=== PATIENT | female | born 1965 | race Caucasian/White ===

== ENCOUNTER 2019-07-21 12:09 | Inpatient (IN) ==
[2019-07-21] MEDS ORDERED: TYLENOL PO PRN (13:23)
[2019-07-21] MEDS ORDERED: NS 1,000 ML IV ONE (13:23)
[2019-07-21] MEDS ORDERED: NS 1,000 ML IV SCH (13:30)
--- NOTE | 2019-07-21 13:40 | EKG Report ---
Test Performed on : 07/21/2019 1:29:36 PM Test Reason : chest pain Blood Pressure : / mmHG Vent. Rate : 108 BPM Atrial Rate : 108 BPM P-R Int : 116 ms QRS Dur : 084 ms QT Int : 336 ms P-R-T Axes : 069 069 077 degrees QTc Int : 450 ms Sinus tachycardia. Minimal voltage criteria for LVH, may be normal variant Nonspecific T wave abnormality Abnormal ECG When compared with ECG of 29-JUN-2018 12:10, T wave inversion now evident in Inferior leads Confirmed by Lorrie Mendoza MD ([id number]) on 07/22/2019 4:57:22 PM
[2019-07-21] MEDS: MORPHINE IV PRN ×2 (14:17→17:30)
[2019-07-21] MEDS: ZOFRAN IV PRN ×2 (14:17→18:55)
--- NOTE | 2019-07-21 14:39 | HISTORY AND PHYSICAL ---
PRIMARY CARE PROVIDER: Dr. Jones. PRIMARY TREASURY ASSISTANT: Dr. Sidhu. PRIMARY MARKET MASTER: Dr. Padilla. CHIEF COMPLAINT: Epigastric pain. HISTORY OF PRESENT ILLNESS: Ms Cherie Driscoll is a 54-year-old female with a medical history of SVT, moderate aortic insufficiency, anxiety, COPD, chronic pancreatitis, spinal nerve syndrome, who states that for at least 1 month, she has had some epigastric pain that has radiated into her back. Dr. Jones recommended her to Dr. Padilla, who around 2 weeks ago performed an EGD and a colonoscopy. Those, however, did not show any acute findings and then she re-presented for a follow-up visit with Dr. Padilla today complaining of 10/10 epigastric pain that would radiate into her back. He wanted to direct admit for treatment of acute on chronic pancreatitis and to complete a workup here. Last week, she complained of subjective fever of 103 degrees and some dizzy spells. She also states that she has had an old vaginal cyst in the past and when she voids, it feels like fire in that location. She has had decreased appetite and complains of a 30 pound weight loss over the past month due to the nausea and vomiting that she is having with epigastric pain. PAST MEDICAL HISTORY: 1. Chronic pancreatitis. 2. COPD. 3. Anxiety. 4. Moderate aortic insufficiency. 5. History of SVT. SURGICAL HISTORY: 1. Neck surgery. 2. Vaginal cyst drainage. 3. Appendectomy. 4. Cholecystectomy. 5. Bilateral tubal ligation. SOCIAL HISTORY: Quit drinking in 2005 but prior to that she drank daily and it was Vladislav Fallon or vodka. She still smokes 1 pack per day, started at the age of 14. She denies any illicit drug use. 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 She is engaged to a man that she has been with for 21 years. Has several children and grandchildren. FAMILY HISTORY: Cousin and grandmother had pancreatic cancer. Mother had ovarian cancer, congestive heart failure and COPD. Father had bone cancer and Alzheimer's. ALLERGIES: Amitriptyline and red dye. HOME MEDICATIONS: Have not been reconciled yet. REVIEW OF SYSTEMS: Fourteen point review of systems are complete and all were negative except for those mentioned in above HPI. PHYSICAL EXAMINATION: VITAL SIGNS: Temperature 97.5 degrees, heart rate 105, respiratory rate 19, blood pressure 106/72, O2 saturation 98% on room air. GENERAL: Ms. Cherie Driscoll is a 54-year-old female. She is in no acute distress. She is able to answer questions appropriately. HEENT: Atraumatic, normocephalic. Pupils equal, round, reactive to light. Extraocular movements intact. Mucous membranes are moist. NECK: Trachea midline. CARDIOVASCULAR: S1, S2. Regular rate and rhythm. No rubs, gallops, murmurs. No lower extremity edema. +2 dorsalis and radial pulses. Negative JVD or carotid bruits. PULMONARY: Clear to auscultate. Bilateral breath sounds. No accessory muscle use or work of breathing noted. GASTROINTESTINAL: Soft, tender in the epigastric region and left upper quadrant with palpation. EXTREMITIES: Moves all extremities equally. Full range of motion. NEUROLOGIC: Alert and oriented x3. Follows commands. Sensory is intact. SKIN: Warm, dry, intact. LABORATORY DATA: Not available yet. IMAGING: Not available yet. EKG, normal sinus rhythm, it is sinus tachycardia, rate 108, QTc is 450. ASSESSMENT AND PLAN: 1. High suspicion for acute on chronic pancreatitis with epigastric pain, nausea, vomiting and weight loss. We will keep her n.p.o. except for medications. We will consult Dr. Padilla. We will check an amylase and lipase and abdominal x-ray. If abdominal x-ray is normal, we will go ahead and do an abdominal and pelvic CT. We will do IV fluid hydration and pain control with morphine. 2. Anxiety. Awaiting home medications to be reconciled. 3. Chronic obstructive pulmonary disease. No home oxygen. No nebulizers. 4. Moderate aortic insufficiency with history of supraventricular tachycardia. It looks like she has been on Cardizem or diltiazem in the past, so once it is reconciled, we will resume it. 5. Chronic back pain or spinal nerve syndrome. I do not believe she is really taking anything for the pain as she states she does not like to take pain medication. 6. History of alcoholism and alcohol abuse. She has been quit since 2006 but since has sustained chronic pancreatitis. 7. Tobacco abuse. Cessation discussed. 8. Deep venous thrombosis prophylaxis. Lovenox. 9. Complains of vaginal pain, worse with urination, and will get an ultrasound. She states that she has had a vaginal cyst drained around a year ago. Dictated by JOVANNI Antonio for Melvin Walton MD cc: JOVANNI Antonio MD I agree with most components of history, physical, assessment and plan. A separate addendum has been dictated. MTDD
[2019-07-21 14:41] LABS: INR 1.07
[2019-07-21 14:42] LABS: PTT 29.3 Seconds (22.3-41.8)
[2019-07-21 14:44] LABS: BASO# 0.07 X1000 (0.0-0.2); BASO% 0.7 % (0.0-0.8); EOS# 0.13 X1000 (0.0-0.7); EOS% 1.3 % (0.0-10.0); HEMATOCRIT 43.2 % (37.0-47.0); HEMOGLOBIN 14.7 g/dL (12.0-16.0); IMM GRAN# 0.02 X1000 (0.0-0.04); IMM GRAN% 0.2 % (0.0-0.5); LYMPH# 2.15 X1000 (1.2-3.4); MCH 28.8 PG (27-31); MCV 84.7 FL (81-99); MONO# 0.58 X1000 (0.11-0.59); MONO% 5.7 % (1.7-9.3); MPV 11.3 FL (7.4-10.4); NEUT# 7.27 X1000 (1.4-6.5); NEUT% 71.1 % (42.2-75.2); PLT 192 X1000 (130-400); RDW 13.2 % (11.5-14.5); WBC 10.22 X1000 (4.8-10.8)
[2019-07-21 14:55] LABS: AMYLASE 45 U/L (20-200); LIPASE 18 U/L (13-60)
--- NOTE | 2019-07-21 15:05 | Diag Imaging Result Doc PS360 ---
EXAM: CHEST-2 VIEWS 07/21/2019 HISTORY: sob TECHNIQUE: PA and lateral chest COMMENT: There is no evidence of acute cardiac or pulmonary disease. Compared to 06/29/2018 there has been no significant change in the appearance of the chest. IMPRESSION: No evidence of acute disease. Electronically signed by José Bai 07/21/2019 3:03 PM
--- NOTE | 2019-07-21 15:06 | Diag Imaging Result Doc PS360 ---
EXAM: ABDOMEN FLAT/UPRIGHT 07/21/2019 HISTORY: abd pain TECHNIQUE: Flat and upright abdomen COMMENT: There is some stool in the ascending colon and gas in the transverse colon. The stomach and small bowel are not distended. There are surgical clips in the gallbladder fossa. The spleen is slightly enlarged measuring over 14 cm in superior-inferior dimension. Otherwise there is no evidence of organomegaly or mass. IMPRESSION: Splenomegaly. Electronically signed by José Bai 07/21/2019 3:04 PM
--- NOTE | 2019-07-21 15:11 | Diag Imaging Result Doc PS360 ---
EXAM: US PELVIC NON-OB COMPLETE 07/21/2019 HISTORY: c/o vaginal pain TECHNIQUE: Transabdominal and endovaginal scan COMMENT: The uterus is 6.1 x 4 x 3.3 cm with a 5 mm endometrial stripe. Neither ovary is identified either transabdominally or endovaginally and there are no abnormal fluid collections. IMPRESSION: No evidence of acute disease. Limited study. Electronically signed by José Bai 07/21/2019 3:08 PM
[2019-07-21 15:39] LABS: MAGNESIUM 2.1 mg/dL (1.5-2.7)
[2019-07-21 15:40] LABS: AGAP 16; ALBUMIN 3.9 g/dL (3.5-5.0); ALKALINE PHOSPHATASE 135 U/L (32-104); BUN 10 mg/dL (8-22); CALCIUM 9.5 mg/dL (8.8-10.2); CHLORIDE 98 mmol/L (98-107); COSMO 271; CREATININE 0.5 mg/dL (0.5-0.9); ESTIMATED GFR > 60; GLUCOSE 139 mg/dL (70-104); GOT 27 U/L (10-30); GPT 17 U/L (10-36); POTASSIUM 3.8 mmol/L (3.5-5.1); SODIUM 135 mmol/L (136-145); TCO2 21 mmol/L (25-35); TOTAL PROTEIN 7.8 g/dL (6.3-8.3)
[2019-07-21 15:57] LABS: LYMPHS 20 % (21-51); MONO 4 % (1-9); SEGS 76 % (42-75)
[2019-07-21] MEDS ORDERED: PROTONIX PO ONE (16:29)
[2019-07-21] MEDS: CREON PO SCH (17:31)
--- NOTE | 2019-07-21 18:45 | HISTORY AND PHYSICAL ---
ADDENDUM: I agree with most components of history, physical, assessment, and plan. In brief, Ms. 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 In the Gastroenterology office she was found to have 10 on 10 epigastric abdominal pain. She was diagnosed with acute on chronic pancreatitis, so she was admitted directly for management of pancreatitis. SUBJECTIVE: Ms. Driscoll at the moment is complaining of epigastric pain. She complains that morphine does not help her and previously meperidine had helped her. She is also requesting me to start her on her home alprazolam. She denies any alcohol drink since year 2005. She is an active tobacco user. She has been experiencing a lot of stress and anxiety recently. She is complaining of weight loss. VITALS: Temperature 97.8 degrees, pulse 75, respiratory 18, blood pressure 110/65 saturating 95% on room air. PHYSICAL EXAMINATION: In mild distress because of pain. She is crying during encounter. HEENT: Oral cavity is moist. CHEST: Air entry bilaterally equal. No wheeze, rhonchi, crackles. CARDIOVASCULAR: S1, S2 normal. No murmur or gallop. ABDOMEN: Abdomen is soft. Epigastric tenderness without any rebound or rigidity. Active bowel sounds. EXTREMITIES: No lower extremity edema. NEUROLOGICAL: She is alert and oriented x3. [place] [address], hemoglobin 14.7, platelet 192,000. Her electrolytes are normal. Microbiology: Blood cultures were collected, but I do not suspect any sepsis. Pelvic ultrasound was unremarkable. She previously had a tubal ligation. Chest x-ray did not have any evidence of acute disease. Abdominal x-ray had splenomegaly. ASSESSMENT AND PLAN: 1. Acute on chronic pancreatitis, though her lipase and amylase are normal. Her clinical presentation there looks consistent with it. Her stress and anxiety could also be contributing factors towards her abdominal pain. I will resume her home antianxiety medication, alprazolam. I will keep her on intravenous meperidine. I will give her intravenous fluids. I will also start her on sublingual Levsin. Pancreatic enzymes have been ordered by the GI team. I will monitor her inside the hospital and advance diet as tolerated. 2. History of aortic stenosis. Continue her home diltiazem. DISPOSITION: Monitor patient inside the hospital. Plan of care discussed with her. Her questions have been answered. cc: Melvin Walton MD
[2019-07-21] MEDS: DEMEROL IV PRN (18:55)
[2019-07-21] MEDS: XANAX PO PRN (20:12)
[2019-07-21] MEDS: LEVSIN-SL SL SCH (20:12)
[2019-07-22 01:00] LABS: URINE SOURCE CLEAN CATCH
[2019-07-22 01:03] LABS: BILIRUBIN URINE NEGATIVE (NEGATIVE); BLOOD URINE TRACE (NEGATIVE); COLOR YELLOW; GLUCOSE URINE NEGATIVE (NEGATIVE); KETONE URINE NEGATIVE (NEGATIVE); LEUKOCYTES URINE LARGE (NEGATIVE); NITRITE URINE NEGATIVE (NEGATIVE); PROTEIN URINE TRACE mg/dL (NEGATIVE); SP GRAVITY URINE 1.018; TURBIDITY URINE HAZY (CLEAR); UROBILINOGEN URINE NORMAL (NORMAL)
[2019-07-22] MEDS: DEMEROL IV PRN ×4 (01:09→18:53)
[2019-07-22] MEDS: ZOFRAN IV PRN ×3 (01:09→20:50)
[2019-07-22 01:15] LABS: UR EPITHELIAL CELLS <10 /HPF (<10); URINE BACTERIA NEGATIVE /HPF; URINE RBC <10 /HPF (<10); URINE WBC TNTC /HPF (<10)
[2019-07-22 01:16] LABS: URINE CASTS NONE SEEN; URINE CRYSTALS NONE SEEN; URINE SMALL ROUND CELLS NONE SEEN; URINE TRICHOMONAS PRESENT; URINE YEAST NONE SEEN
[2019-07-22] MEDS: PROTONIX PO SCH (06:38)
[2019-07-22] MEDS: XANAX PO PRN ×3 (06:38→20:50)
[2019-07-22 07:58] LABS: BASO# 0.03 X1000 (0.0-0.2); BASO% 0.5 % (0.0-0.8); EOS# 0.13 X1000 (0.0-0.7); HEMATOCRIT 37.7 % (37.0-47.0); HEMOGLOBIN 12.5 g/dL (12.0-16.0); LYMPH# 1.43 X1000 (1.2-3.4); LYMPH% 21.5 % (20.5-51.1); MCH 28.7 PG (27-31); MCHC 33.2 g/dL (33-37); MCV 86.5 FL (81-99); MONO# 0.44 X1000 (0.11-0.59); MONO% 6.6 % (1.7-9.3); MPV 11.4 FL (7.4-10.4); NEUT# 4.63 X1000 (1.4-6.5); NEUT% 69.4 % (42.2-75.2); PLT 152 X1000 (130-400); RBC 4.36 XMIL (4.2-5.4); RDW 13.1 % (11.5-14.5); WBC 6.66 X1000 (4.8-10.8)
[2019-07-22 08:14] LABS: AGAP 12; ALB/GLOB RATIO 1.1; ALBUMIN 3.3 g/dL (3.5-5.0); ALKALINE PHOSPHATASE 120 U/L (32-104); BUN 7 mg/dL (8-22); CALCIUM 8.6 mg/dL (8.8-10.2); CHLORIDE 103 mmol/L (98-107); COSMO 277; CREATININE 0.6 mg/dL (0.5-0.9); ESTIMATED GFR > 60; GLUCOSE 123 mg/dL (70-104); GOT 88 U/L (10-30); GPT 44 U/L (10-36); MAGNESIUM 1.8 mg/dL (1.5-2.7); POTASSIUM 4.2 mmol/L (3.5-5.1); SODIUM 139 mmol/L (136-145); TCO2 24 mmol/L (25-35); TOTAL BILIRUBIN 0.42 mg/dL (0.20-1.00); TOTAL PROTEIN 6.4 g/dL (6.3-8.3)
[2019-07-22] MEDS: CARDIZEM CD PO SCH (09:25)
[2019-07-22] MEDS: LEVSIN-SL SL SCH ×3 (09:25→17:13)
[2019-07-22] MEDS: CREON PO SCH ×3 (09:25→17:13)
--- NOTE | 2019-07-22 11:20 | GASTROENTEROLOGY PROGRESS NOTE ---
DATE: 07/22/2019 SUBJECTIVE: Ms. Driscoll is a 54-year-old female. She is resting in bed. The patient is complaining of abdominal pain in the right upper quadrant and left quadrant. The patient is currently on a clear liquid diet and she is able to tolerate her diet well. She has denied any nausea or vomiting. The patient mentioned that she did have a bowel movement this morning. OBJECTIVE: Vital Signs: Temperature 97.8 degrees, pulse 80, respirations 20, blood pressure 99/58, oxygen saturation 96% on room air. The patient's weight is 161 pounds. BMI is 26.0 kg/m2. General: She is alert, oriented x3, and in no acute distress. HEENT: Pale conjunctivae, no icterus. PERRL. Neck: Supple. Lungs: Clear to auscultation. Cardiovascular: Regular rate and rhythm. Abdomen: Abdomen is mildly distended, soft. Tender in the right upper quadrant and left upper quadrant on palpation. Extremities: No clubbing, no cyanosis, no edema. Pedal pulses 2+ present bilaterally. Neurologic: She is alert, oriented x3. LABS: WBCs 6.66, RBC 4.36, hemoglobin 12.5, hematocrit is 37.7, platelet count is 152. Sodium 139, potassium 4.2, chloride 103, carbon dioxide 24, anion gap is 12. BUN is 7, creatinine 0.6, glucose 123, calcium 8.6, magnesium is 1.8. Total bilirubin is 0.42, AST 88, ALT 44, alkaline phosphatase is 120, albumin is 3.3. Urinalysis today has shown trace of protein, trace of blood, large amount of leukocytes. X-RAYS: The patient's pelvis ultrasound showed no evidence of acute disease. The patient's chest x-ray has shown no evidence of acute disease. An abdominal x-ray has shown splenomegaly. IMPRESSION AND PLAN: 1. Chronic pancreatitis. 2. Abnormal liver function tests. 3. Splenomegaly on abdominal x-ray. 4. Alcohol abuse. 5. Tobacco use. 6. Nausea and vomiting 7. Abdominal pain. PLAN: Ms. Driscoll is a 54-year-old female with a history of COPD, chronic back pain, history of alcoholism and tobacco abuse. GI is following her for chronic pancreatitis. The patient is currently receiving Creon 72285 units p.o. 3 times a day. She is on PPIs p.o. daily. We have ordered an MRCP for the patient to rule out any suspected bile and pancreatic duct obstruction. We will continue to provide conservative care to the patient and follow the plan of care per PCP. This plan was discussed with Dr. Padilla. Please call us with any further questions or concerns. Dictated by JOVANNI Waters for Shekhar Padilla MD [facility]
--- NOTE | 2019-07-22 12:16 | Diag Imaging Result Doc PS360 ---
MRI MRCP (ABD W/O CONTRAST) - 07/22/2019 INDICATION: chronic pancreatitis TECHNIQUE: COMPARISON: None FINDINGS: There is severe diffuse atrophy of the pancreas. There is significant dilation of the main pancreatic duct. There is essentially complete loss of pancreatic tissue in the pancreatic head. The main pancreatic duct measures up to 6.2 mm. The main pancreatic duct appears to empty into a different opening/papilla from the common bile duct. Anatomy of the common bile duct appears normal. The common bile duct and hepatic collecting ducts are normal. Gallbladder is not present. Spleen size is 12 x 4.5 cm. The liver, adrenals, and kidneys are normal. No adenopathy. No mass or fluid collection. IMPRESSION: 1. Severe diffuse pancreatic atrophy compatible with chronic pancreatitis. 2. The main pancreatic duct appears to empty into a different papilla within the common bile duct. This papilla is actually more distal than the major papilla. This indicates a variant form of pancreatic divisum. Electronically signed by Yosvany Rajan 07/22/2019 12:14 PM
[2019-07-22] MEDS: ROCEPHIN 1 GM in NS 50 ML IV SCH (17:13)
[2019-07-22] MEDS: LOVENOX SUBQ SCH (17:17)
--- NOTE | 2019-07-22 17:24 | PROGRESS NOTE ---
DATE: 07/22/2019 INTERVAL HISTORY: No acute events overnight. Ms. Fang is feeling as if the meperidine is helping her pain better. She continues to have some nausea. However, she is feeling better and she wanted me to start her on full liquid diet. We discussed about MRCP result, chronic pancreatitis without any acute inflammation. We discussed about possibly stopping intravenous opioids tomorrow and transition to oral medications. VITALS: Temperature 97.8 degrees, pulse 79, respiratory rate 20, blood pressure 112/70, saturating 97% room air. PHYSICAL EXAMINATION: Ms. Driscoll is not in any acute distress. HEENT: Oral cavity is moist. Pulmonary: Air entry bilaterally equal. No wheeze or crackles. Cardiovascular: S1 normal. No murmurs, rubs or gallops. Abdomen: Soft. There is mild generalized tenderness especially in epigastric region without any rebound or rigidity. Active bowel sounds. Extremity: No lower extremity edema. NEURO: She is alert and oriented x3. LABS: Suggest WBC 6.6, hemoglobin 12.5, platelets 152,000. BUN was 7, creatinine 0.6. She has slight elevation of AST and ALT and slight elevation of alkaline phosphatase as well. No new microbiological data. She has been complaining of dysuria. IMAGING: MRCP performed today has severe diffuse pancreatic atrophy compatible with chronic pancreatitis. The main pancreatic duct appears to empty in a different papula within the common bile duct. This papula was more distal than the major papula indicating form of pancreatic divisum. Pelvic ultrasound did not have evidence of acute study, though it was a limited study. Chest x-ray did not have evidence of acute disease. Abdominal x-ray had splenomegaly. ASSESSMENT AND PLAN: 1. Acute on chronic pancreatitis, though. There is no lab evidence of it the patient did have acute worsening of her chronic pain. MRCP does not have any acute pathology. I will continue to address her pain with intravenous meperidine for another 24 hours and my plan is to taper down intravenous opioid medication, start her on oral medication in next 24 hours. I will also continue her on Creon for her chronic pancreatitis and Levsin for pain relief. 2. Acute urinary tract infection based on symptoms of dysuria and burning. Follow up final urine culture results. I will start her on intravenous ceftriaxone. 3. History of supraventricular tachycardia and moderate aortic stenosis. I will continue her home medications of diltiazem. 4. Others: Continue alprazolam for anxiety. DISPOSITION: I will monitor patient inside the floor as I transition her slowly from intravenous opioid to oral medication. Plan of care discussed with . All of her questions have been answered. cc: Melvin Walton MD MTDD
[2019-07-23] MEDS: DEMEROL IV PRN ×4 (00:25→21:31)
[2019-07-23] MEDS: ZOFRAN IV PRN ×6 (00:27→21:31)
[2019-07-23] MEDS: PROTONIX PO SCH (06:01)
[2019-07-23] MEDS: XANAX PO PRN ×3 (06:05→21:34)
--- NOTE | 2019-07-23 09:54 | GASTROENTEROLOGY CONSULTATION ---
DATE: 07/21/2019 REASON FOR CONSULTATION: Acute on chronic pancreatitis. HISTORY OF PRESENT ILLNESS: Ms Cherie Driscoll is a 54-year-old woman past medical history of COPD, history of alcoholic pancreatitis, chronic migraines, hemorrhoids, tobacco abuse, colonic polyps, hiatal hernia, diverticulosis and gastritis, who is seen by me in the office today with worsening epigastric pain. The patient says that her pain has been ongoing for several weeks. She has not been able to tolerate p.o. and has lost 30 pounds in last month. Even food and drinking water causes her pain. No change in bowel habits including diarrhea, constipation, rectal bleeding, melena. She reports vomiting nonbloody, nonbilious emesis multiple times a day. She recently underwent EGD and colonoscopy on 06/24 and 06/28 respectively, she was found to have a small hiatal hernia, gastritis, hemorrhoids, diverticulosis and small polyps. I referred her to pain management but she has not been seen by them. She was prescribed [place] by her primary care doctor which she reports made her feel sick which she discontinued. She has had extensive workup in the past at outside facilities [*] [place] [facility] and was found to have pancreatic calcifications consistent with chronic pancreatitis. She does smoke a pack per day. No alcohol in the last 10 years. She has a cousin and grandmother with a history of pancreatic cancer. Given her inability to tolerate p.o. and her significant abdominal pain she was diverted to [facility] today for pain control, IV fluids and expedited workup. REVIEW OF SYSTEMS: As per HPI otherwise 12 point review of systems negative. PAST MEDICAL HISTORY: As per HPI. She also has anxiety, moderate aortic insufficiency, history of SVT. PRIOR SURGERY: Vaginal cyst drainage, appendectomy, cholecystectomy, bilateral tubal ligation. SOCIAL HISTORY: She smokes a pack per day. She was previously a heavy drinker but stopped drinking about 10 years ago. She denies any illicit drug use. 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 FAMILY HISTORY: Cousin and grandmother pancreatic cancer. Mother had ovarian cancer, congestive heart varied, COPD. Father had bone cancer and Alzheimer's . MEDICATIONS: She reports not taking any currently. ALLERGIES: Amitriptyline and red dye. PHYSICAL EXAMINATION: Vital Signs: Temperature 97.5 degrees, heart rate 105, respiratory rate 19, blood pressure 106/72, O2 saturation 98% on room air. General: Patient is awake, alert, oriented in mild distress secondary to pain . HEENT: Sclerae anicteric, moist mucous membrane, extraocular motor intact. Neck: Supple. No JVD, lymphadenopathy. Cardiac: Regular rate and rhythm. No murmurs, rubs, gallops. Clear to auscultation bilaterally. Abdomen: Tender in epigastric pain, nondistended. Bowel sounds are present. No peritonitis. No ascites. Extremities: No clubbing, cyanosis, or edema. Neuro: Nonfocal. LABS: White count 10.2, hemoglobin 14.7, platelets of 192,000. INR of 1.07. Sodium 135, potassium 3.8, chloride 98, bicarb 21, BUN 10, creatinine 0.5, glucose 139, calcium 9.5, magnesium 2.1, total bilirubin 0.4, AST 27, ALT of 17, alkaline phosphatase 135, CK of 38, lipase of 18, albumin of 2.9, total protein 7.8, TSH of 1.36, lactate of 1.3. IMAGING: KUB shows splenomegaly, [*]no evidence of acute disease. Pelvic ultrasound shows no evidence of acute disease in that study. ASSESSMENT AND PLAN: Ms. Cherie Driscoll is a 64-year-old woman with past medical history of chronic obstructive pulmonary disease with alcoholic pancreatitis, tobacco abuse and recent diagnosis of chronic pancreatitis who presented to the hospital as a referral from my office for probable acute on chronic pancreatitis. She has been having some nausea, vomiting and has not been able to tolerate p.o. and her pain is severe. I would recommend pain control, IV fluids, routine labs including lipase, LFT, CBC, CMP. We will monitor her closely, serial abdominal exams and start her on pancreatic enzymes and PPI and if she has no improvement with this treatment we will consider starting her on Lyrica and she may ultimately need a celiac plexus block [*] for her for as an outpatient . Thank you for this consult. Will follow with you. Please call with any questions or concerns.
[2019-07-23] MEDS: LEVSIN-SL SL SCH ×3 (10:38→17:47)
[2019-07-23] MEDS: CARDIZEM CD PO SCH (10:38)
[2019-07-23] MEDS ORDERED: ULTRAM PO SCH (11:30)
[2019-07-23] MEDS: CREON PO SCH ×3 (11:53→17:47)
--- NOTE | 2019-07-23 12:16 | PROGRESS NOTE ---
DATE: 07/23/2019 INTERVAL HISTORY: No acute events overnight. SUBJECTIVE: Ms. Driscoll denies new complaint. Her pain is well controlled. We discussed about slowly transitioning her from intravenous to oral medication. She understood it. We discussed about urinalysis and urine infections. VITALS: Temperature 98 degrees, pulse 75, respirations 16, blood pressure 110/57, saturating 95% room air. PHYSICAL EXAMINATION: She is not in acute distress. She appears anxious. Her son is at bedside. Oral cavity is moist. Lungs: Air entry bilaterally equal. No wheeze, rhonchi, crackles. Cardiovascular: S1, S2 normal. No murmur or gallop. Abdomen: Soft. Mild abdominal tenderness. Active bowel sounds. Extremity: No lower extremity edema. CLAIM SPECIALIST: She is alert and oriented x3. LABS: No CBC or BMP today. IMAGING: MRCP performed yesterday had suggested severe diffuse pancreatic atrophy compatible with chronic pancreatitis. The main pancreatic duct appears to empty into a different papilla within the common bile duct. The papilla is actually more distal than the major papilla. This indicates a variant form of pancreatic divisum. ASSESSMENT AND PLAN: 1. Acute on chronic pancreatitis. Continue to address pain with intravenous heparin and decrease the frequency. Also started on oral tramadol. Continue Creon for chronic pancreatitis and Levsin for pain relief as well. 2. Acute urinary tract infection, cystitis with dysuria. Continue intravenous ceftriaxone. Follow up final culture results of urine culture. 3. History of supraventricular tachycardia and moderate aortic stenosis. Continue home diltiazem. 4. Others. Continue anxiety medication, Alprazolam. DISPOSITION: Monitor patient inside the hospital. If her pain gets better controlled, my plan is to consider discharge in next 24 to 48 hours. Plan of care discussed with the patient. Her questions have been answered. cc: Melvin Walton MD
[2019-07-23] MEDS: ROCEPHIN 1 GM in NS 50 ML IV SCH (14:30)
[2019-07-23] MEDS: DEMEROL PO SCH ×2 (14:58→22:54)
[2019-07-23] MEDS: LOVENOX SUBQ SCH (17:48)
--- NOTE | 2019-07-23 23:11 | PROVIDER PROGRESS NOTE ---
Progress Note S: No acute overnight events. She reports her abdominal pain is improving. No vomiting. She is tolerating full liquids. +BMs O: Last Vital Signs Temp 97.7 F 07/23/19 20:00 Pulse 78 07/23/19 20:00 Resp 16 07/23/19 20:00 BP 117/58 07/23/19 20:00 Pulse Ox 98 07/23/19 20:00 Height 5 ft 6 in Weight 161 lb GEN: awake, alert, NAD HEENT: anicteric, MMM NECK: supple, no JVD PULM: CTAB, no wheezing ABD: soft minimally TTP throughout, no rebound or guarding EXT: no cce NEURO: nonfocal LABS: 07/22/19 07/22/19 07:28 07:28 WBC 6.66 Hgb 12.5 Plt Count 152 Sodium 139 Potassium 4.2 Chloride 103 Carbon Dioxide 24 L BUN 7 L Creatinine 0.6 Total Bilirubin 0.42 AST 88 H ALT 44 H Alkaline Phosphatase 120 H Total Protein 6.4 Albumin 3.3 L MRI MRCP (ABD W/O CONTRAST) - 07/22/2019 INDICATION: chronic pancreatitis TECHNIQUE: COMPARISON: None FINDINGS: There is severe diffuse atrophy of the pancreas. There is significant dilation of the main pancreatic duct. There is essentially complete loss of pancreatic tissue in the pancreatic head. The main pancreatic duct measures up to 6.2 mm. The main pancreatic duct appears to empty into a different opening/papilla from the common bile duct. Anatomy of the common bile duct appears normal. The common bile duct and hepatic collecting ducts are normal. Gallbladder is not present. Spleen size is 12 x 4.5 cm. The liver, adrenals, and kidneys are normal. No adenopathy. No mass or fluid collection. IMPRESSION: 1. Severe diffuse pancreatic atrophy compatible with chronic pancreatitis. 2. The main pancreatic duct appears to empty into a different papilla within the common bile duct. This papilla is actually more distal than the major papilla. This indicates a variant form of pancreatic divisum. PROBLEM LIST A/P: Ms. Cherie Driscoll is a 64-year-old woman with past medical history of chronic obstructive pulmonary disease with alcoholic pancreatitis, tobacco abuse and recent diagnosis of chronic pancreatitis who presented to the hospital as a referral from my office for chronic pancreatitis. MRCP yesterday showed severe pancreatitis with probable pancreatic divisum. She is improving with supportive care. Will recommend transitioning to oral medications. Continue pancreatic enzymes and PPI. She may benefit from elective ERCP with sphincterotomy as outpatient if pain does not improve with conservative mgmt. Also, lyrica +/- celiac plexus block may be beneficial. She had a minor bump in her LFTs. Will trend. # Chronic pancreatitis # Pancreatic divisum # Nausea # Tobacco abuse # COPD # Abnormal LFTs Will follow with you.
[2019-07-24] MEDS: ZOFRAN IV PRN ×6 (01:24→21:08)
[2019-07-24] MEDS: DEMEROL IV PRN ×3 (05:02→21:08)
[2019-07-24] MEDS: XANAX PO PRN ×3 (06:15→21:08)
[2019-07-24] MEDS: PROTONIX PO SCH (06:15)
[2019-07-24 07:47] LABS: AGAP 11; ALB/GLOB RATIO 1.2; ALBUMIN 3.6 g/dL (3.5-5.0); ALKALINE PHOSPHATASE 115 U/L (32-104); BUN 3 mg/dL (8-22); CALCIUM 8.8 mg/dL (8.8-10.2); CHLORIDE 99 mmol/L (98-107); COSMO 275; CREATININE 0.7 mg/dL (0.5-0.9); ESTIMATED GFR > 60; GLUCOSE 122 mg/dL (70-104); GOT 27 U/L (10-30); GPT 28 U/L (10-36); POTASSIUM 4.2 mmol/L (3.5-5.1); SODIUM 139 mmol/L (136-145); TCO2 29 mmol/L (25-35); TOTAL BILIRUBIN 0.29 mg/dL (0.20-1.00); TOTAL PROTEIN 6.5 g/dL (6.3-8.3)
[2019-07-24] MEDS: CARDIZEM CD PO SCH (09:09)
[2019-07-24] MEDS: DEMEROL PO SCH ×2 (09:09→17:02)
[2019-07-24] MEDS: CREON PO SCH ×3 (09:09→17:02)
[2019-07-24] MEDS: LEVSIN-SL SL SCH ×3 (09:15→17:03)
--- NOTE | 2019-07-24 12:38 | PROGRESS NOTE ---
DATE: 07/24/2019 INTERVAL HISTORY: No acute events overnight. SUBJECTIVE: Ms. Driscoll denies new complaints. We discussed about stopping intravenous pain medication tonight and she is in agreement with the plan. VITALS: Currently, temperature 97.6 degrees, pulse 79, respiratory rate 16, blood pressure 110/56, saturating 98% on room air. PHYSICAL EXAMINATION: She is not in acute distress. Oral cavity is moist. Lungs: Air entry bilaterally equal. No wheeze, rhonchi, crackles. Cardiovascular: S1, S2 normal. No murmur, rub, or gallop. Abdomen: Soft. Mild tenderness in the epigastric region. No rebound or rigidity. Active bowel sounds. No lower extremity edema. She is alert and oriented x3. LABS: Suggestive of resolution of her transaminitis. Her AST is 27, ALT 28. She does have elevated alkaline phosphatase of 115. MICROBIOLOGY: No new data. IMAGING: No new imaging. ASSESSMENT AND PLAN: 1. Acute on chronic pancreatitis. Continue to address pain with intravenous meperidine or Demerol. My plan is to stop her intravenous Demerol tonight and just keep her on oral Demerol. Previously, tramadol was not working for her. I will also continue her on Levsin. 2. Acute urinary tract infection and cystitis with dysuria. Her urine culture did not show any growth. I will stop the intravenous antibiotics. 3. History of supraventricular tachycardia and moderate aortic stenosis. Continue home diltiazem. 4. Others. Continue alprazolam for anxiety. 5. Disposition. Once patient's pain is reasonably controlled, my plan is to discharge her home in next 24 hours. The patient is in agreement with the plan. cc: Melvin Walton MD
[2019-07-24] MEDS: LOVENOX SUBQ SCH (17:02)
--- NOTE | 2019-07-24 23:51 | PROVIDER PROGRESS NOTE ---
Progress Note S: No acute overnight events. Patient reports abdominal pain is slightly better. She is tolerating oral pain medications. No vomiting. Also tolerating full liquid diet. +BMs. O: Last Vital Signs Temp 98.0 F 07/24/19 20:00 Pulse 77 07/24/19 20:00 Resp 13 07/24/19 20:00 BP 101/55 07/24/19 20:00 Pulse Ox 97 07/24/19 20:00 Height 5 ft 6 in Weight 161 lb GEN: awake, alert, NAD HEENT: anicteric, MMM NECK: supple, no JVD PULM: CTAB, no wheezing ABD: soft NT/ND, BS present EXT: no cce NEURO: moving all extremities symmetrically LABS: 07/24/19 07:07 Sodium 139 Potassium 4.2 Chloride 99 Carbon Dioxide 29 BUN 3 L D Creatinine 0.7 Glucose 122 H Calcium 8.8 Total Bilirubin 0.29 AST 27 ALT 28 Alkaline Phosphatase 115 H Total Protein 6.5 Albumin 3.6 A/P: Ms. Cherie Driscoll is a 64-year-old woman with past medical history of chronic obstructive pulmonary disease with alcoholic pancreatitis, tobacco abuse and recent diagnosis of chronic pancreatitis who presented to the hospital as a referral from my office for chronic pancreatitis. MRCP yesterday showed severe pancreatitis with probable pancreatic divisum. She is improving with supportive care. Will start patient on low fat diet today. Continue pancreatic enzymes and PPI. She may benefit from elective ERCP with sphincterotomy as outpatient if pain does not improve with conservative mgmt. Other options including Lyrica and celiac plexus block. LFTs improved. # Chronic pancreatitis # Pancreatic divisum # Nausea # Tobacco abuse # COPD # Abnormal LFTs Will follow with you.
[2019-07-25] MEDS: ZOFRAN IV PRN ×3 (00:57→12:07)
[2019-07-25] MEDS: DEMEROL PO SCH ×2 (00:57→09:14)
[2019-07-25] MEDS: PROTONIX PO SCH (06:10)
[2019-07-25] MEDS: XANAX PO PRN ×2 (06:11→12:07)
[2019-07-25] MEDS: LEVSIN-SL SL SCH ×2 (08:00→12:07)
[2019-07-25] MEDS: CREON PO SCH ×2 (08:00→13:13)
[2019-07-25] MEDS: CARDIZEM CD PO SCH (08:00)
--- NOTE | 2019-07-25 09:48 | GASTROENTEROLOGY PROGRESS NOTE ---
DATE: 07/25/2019 SUBJECTIVE: Ms. Driscoll is a 54-year-old, female. The patient was complaining of abdominal tenderness in the epigastric area. She has denied any nausea and vomiting. She is currently on a low-fat diet and is able to tolerate her diet fairly well. The patient did have 2 bowel movements today. OBJECTIVE: Vital Signs: Temperature 98.4 degrees, pulse 75, respirations 19, blood pressure 118/62, oxygen saturation 94% on room air. The patient's weight is 161 pounds. The BMI is 26.0 kg/m2. General: She is alert, oriented x3, and in no acute distress. HEENT: Pale conjunctivae. No icterus. PERRL. Neck: Supple. Lungs: Clear to auscultation. Abdomen: Soft, nondistended. Tender in the epigastric area. Active bowel sounds heard in all 4 quadrants. Extremities: No clubbing, no cyanosis, no edema. Pedal pulses 2+ present bilaterally. Neurologic: She is alert, oriented x3. Labs: The patient has no new hematology. Her chemistries are from 07/24/2019. Sodium 139, potassium 4.2, chloride 99, carbon dioxide 29, anion gap is 11, BUN 3, creatinine is 0.7, glucose 122, calcium is 8.8. Total bilirubin is 0.29, AST 27, ALT 28, alkaline phosphatase is 115, albumin is 3.6. IMPRESSION AND PLAN: 1. Chronic pancreatitis. 2. Pancreatic divisum. 3. Nausea. 4. Tobacco abuse. 5. Chronic obstructive pulmonary disease. 6. Abnormal liver function tests. PLAN: Ms. Driscoll is a 54-year-old, female with a past medical history of COPD and alcoholic pancreatitis. GI is following her for her chronic pancreatitis. Her MRCP showed that she had severe pancreatitis with probable pancreatic divisum. She is on a low fat diet and is able to tolerate her diet well. We will continue her with her Creon 36,000 units. The patient is also on PPIs p.o. daily. She is on antiemetic, Zofran, for her nausea. The patient is still complaining of pain in the epigastric area. If the patient is able to tolerate her diet well, she can be discharged and we will follow her up as an outpatient in 2 weeks. This plan was discussed with Dr. Padilla. Please call us for any further questions or concerns. Dictated by JOVANNI Waters for Shekhar Padilla MD Physician Attestation I have seen and examined the patient. I have discussed and reviewed the note by Mayuri BAIG and agree with findings and plan as documented. MTDD
[2019-07-25 11:39] VITALS: BP 104/67
--- NOTE | 2019-07-25 18:22 | PROGRESS NOTE ---
DATE: 07/25/2019 INTERVAL HISTORY: Ms. Driscoll was discharged on oral meperidine. However, she could not find any pharmacy to dispense oral meperidine so she called us back and I talked with her personally and I discussed with her about changing it to [place]. I have suggested her to come back to the hospital with old meperidine or Demerol prescription. We will take that prescription back and dispose of it and I have already written her a new prescription of [place] 5. cc: Melvin Walton MD
--- NOTE | 2019-07-26 09:28 | DISCHARGE SUMMARY ---
ADMISSION DATE: 07/21/2019 DISCHARGE DATE: 07/25/2019 DISCHARGE DISPOSITION: Home. DISCHARGE CONDITION: Hemodynamically stable. Her abdominal pain has improved and is reasonably well controlled on oral medication. She is provided detailed discharge instruction about life- threatening respiratory depression taking benzodiazepines and opioids together and that she should watch out for signs of them. DISCHARGE DIAGNOSES: 1. Acute on chronic pancreatitis. 2. Pyuria without any positive urine culture. OTHER DIAGNOSES: 1. History of alcohol abuse leading to chronic pancreatitis. 2. History of supraventricular tachycardia. 3. History of moderate aortic stenosis for which she is on diltiazem. 4. History of anxiety. 5. Active tobacco abuse DISCHARGE MEDICATIONS: 1. Diltiazem 120 mg extended release 1 tablet daily. 2. Alprazolam 1 mg orally. 3. Creon 90032 unit orally t.i.d. 4. [place] 5 every 8 hours as needed 25 tablets. 5. Levsin sublingual 0.125 mg sublingual t.i.d. p.r.n. 6. Nicotine patch 40 mg patch daily, 20 patches have been prescribed. 7. Pantoprazole 40 mg daily, 15 tablets have been prescribed. VITALS: At time of discharge temperature 98.1 degrees, pulse 74, respiratory rate 19, blood pressure 104/67, she is saturating 94% room air. PHYSICAL EXAMINATION: Ms. Driscoll is not in acute distress. HEENT: Oral cavity is moist. Lungs: Air entry bilaterally equal. No wheeze, rhonchi, crackles. Cardiovascular: S1, S2 normal. No murmur or gallop. Abdomen: Soft, nontender, except mild epigastric tenderness. Active bowel sounds. Extremity: No lower extremity edema. She is alert and oriented x3. LABS: At the time of discharge, WBC 6.6, hemoglobin 12.5, platelets 152,000. Sodium 139, potassium 4.2, BUN 3, creatinine 0.7, alkaline phosphatase 115. Urinalysis had too numerous to count WBCs. MICROBIOLOGY: Blood culture and urine culture did not have any growth. IMAGING: During hospital admission, abdomen x-ray on presentation had a splenomegaly. Chest x- ray on presentation did not have any evidence of acute disease. Pelvic ultrasound did not have any evidence of acute disease, though it was a limited study. MRCP performed had severe diffuse pancreatic atrophy compatible with chronic pancreatitis, main pancreatic duct appeared to empty into a different papilla within the common bile duct. This papilla was actually more distal than the major papilla. This indicates a variant form of pancreatic divisum. Electrocardiogram on presentation had sinus tachycardia. Minimal voltage criteria of left ventricular hypertrophy. Nonspecific T-wave abnormality CONSULTATION DURING HOSPITAL ADMISSION: Gastroenterology, Dr. Padilla. HOSPITAL COURSE SUMMARY: Ms. Driscoll is a 54 year lady who was directly admitted to the hospital from sas developer analyst's office who she was seeing outpatient for chronic abdominal pain. Apparently the patient has had chronic abdominal pain and had started following up with a [facility] developer analyst outpatient and EGD and colonoscopies were performed outpatient, which was unremarkable. The patient previously had history of alcohol abuse and she quit drinking about 10 years prior to current admission, though because of alcohol abuse, she has had pancreatitis and she had recent worsening of her chronic pancreatitis, so she was directly admitted for management of acute on chronic pancreatitis and worsening abdominal pain. She was initially started on a clear liquid diet and intravenous opioid pain medication and monitored. Later on intravenous pain medications were tapered off and she was started on oral pain medications and her diet was advanced. With that approach, she had a gradual improvement in her abdominal pain. She was also receiving pancreatic enzymes. At the time of discharge, her pain is reasonably well controlled on oral opioids. She also takes benzodiazepines for anxiety and she was cautioned about the risk of life-threatening respiratory depression with it, but considering her chronic pancreatitis and intractable abdominal pain, she may need opioid medication, so she was given a prescription. 25 minutes spent discharging the patient. Plan of care extensively discussed with her. She was allowed to ask all the questions and they were answered satisfactorily. cc: Melvin Walton MD [facility]
== END 2019-07-25 15:17 | disposition home or self-care (01) | DRG 440 ==
LOC: SUATTDRO 12:09 → DIRADM 12:09 → 3N 12:29
PROVIDERS: ATTEND Internal Medicine